=== PATIENT | female | born 1970 | race Caucasian/White ===

== ENCOUNTER 2018-09-22 09:11 | Emergency (ER) | payer OTHER ==
[~2018-09-22] VITALS: Ht 160 cm; Wt 78.0 kg
[2018-09-22 09:14] VITALS: BP 136/85
[2018-09-22] MEDS ORDERED: FLUORESCEIN OPHTHALMIC 1 MG STRIP ONE (09:23)
--- NOTE | 2018-09-22 09:27 | NUR ---
CONTACT WITH PT, 48 YR OLD FEMALE HERE WITH C/O "FEELS LIKE SOMETHING IN MY RIGHT EYE" BEGAN ON SUNDAY. ON SUNDAY "MY EYES FELT TIRED" DR RAMIRES AT BEDSIDE TO NIKKI PT.
[2018-09-22] MEDS ORDERED: FLUORESCEIN OPHTHALMIC 1 MG STRIP EACHEYE ONE (10:00)
[2018-09-22] MEDS ORDERED: PROPARACAINE OPHTH 0.5%, 15ML EACHEYE ONE (10:00)
== END 2018-09-22 09:58 | disposition home or self-care (01) ==
LOC: ED 09:37
DX: S05.01XA Injury of conjunctiva and corneal abrasion without foreign body, right eye, initial encounter (principal); X58.XXXA Exposure to other specified factors, initial encounter; Y93.89 Activity, other specified; Y92.89 Other specified places as the place of occurrence of the external cause; Y99.8 Other external cause status
CPT/HCPCS: 99283